=== PATIENT | female | born 1970 | race African-American/Black ===

== ENCOUNTER 2020-05-11 06:44 | Day surgery (SDC) | payer MEDICARE ==
[~2020-05-11] VITALS: Ht 185.4 cm; Wt 65.8 kg
[~2020-05-11 06:44] MED LIST: CLONIDINE HCL0.1 MG PO; FOLIC ACID1 MG PO; K-DUR20 MEQ PO; MEGACE400 MG/10 PO; PROTONIX40 MG PO; RENA-VITE TABL0.8 MG PO; TOPROL XL50 MG PO; ZOFRAN4 MG PO
[2020-05-11 07:57] LABS: BASOPHILS 0.1 % (0-2); EOSINOPHILS 0.6 % (0-7); HEMATOCRIT 20.5 % (36.0-48.0); IMMATURE GRANULOCYTES 0.1 % (0-5); LYMPHOCYTE ABS# 2.88 10x3/uL (1.18-3.74); LYMPHOCYTES 41.4 % (15-50); MCH 29.8 pg (26.0-34.0); MCHC 33.2 g/dL (31.0-37.0); MCV 89.9 fL (80.0-100.0); MEAN PLATELET VOLUME 9.4 fL (7.4-10.4); NEUTROPHIL ABS# 3.74 10x3/uL (1.56-6.13); NEUTROPHILS 53.8 % (40-80); PLATELET COUNT 107 10x3/uL (130-400); RBC 2.28 10x6/uL (4.00-5.40); RDW 18.6 % (11.5-14.5)
[2020-05-11 08:04] LABS: HEMOGLOBIN 6.8 g/dL (12-16)
[2020-05-11 08:14] LABS: ANION GAP 9.3 mmol/L (8-16); CALCIUM 8.1 mg/dL (8.5-10.1); CARBON DIOXIDE 28.9 mmol/L (21.0-32.0); CREATININE - SERUM 5.4 mg/dL (0.6-1.3)
[2020-05-11 08:27] VITALS: BP 144/107; Ht 185.4 cm; Wt 65.8 kg
[2020-05-11 08:45] LABS: POTASSIUM - SERUM 2.2 mmol/L (3.5-5.1)
--- NOTE | 2020-05-11 09:18 | NUR ---
0850 DR CRUZ NOTIFIED OF CRITICAL LAB VALUES: K+ 2.2 AND HGB 6.8 ORDERS RECEIVED. 0905 HEMASPLIT ACCESSED BY BRUNILDA TOVAR RN AND BLOOD DRAWN FOR TYPE AND CROSSMATCH FOR 2 UNITS OF BLOOD. PT BANDED AND BLOOD SENT TO LAB. 0915 KCL RIDER INFUSING VIA HEMASPLIT. UNABLE TO FIND A PERIPHERAL VEIN TO INFUSE PRBC'S WHEN AVAILABLE. DEFERRED IV START TO ANESTHESIA
--- NOTE | 2020-05-11 14:50 | NUR ---
1444 RECEIVED CRITICAL K+ LEVEL FROM SATHYA IN THE LAB. 1445 DR DREW IN UNIT AND NOTIFIED OF k+ LEVEL. DR DREW STATED TO CONTINUE WITH KCL RIDERS.
--- NOTE | 2020-05-11 14:54 | NUR ---
DR DREW AT BEDSIDE. K=2.4. 2ND UNIT OF PRBC TRANSFUSING. THIRED POTASSIUM RIDER HUNG AFTER ACCESSING HEMOSPILT LUMEN PER PROTOCOL. PT TOLERATING WELL
--- NOTE | 2020-05-11 16:09 | NUR ---
10 MEQ POTASSIUM RIDER INFUSING UPON ARRIVAL - RATE 100 ML/HR
--- NOTE | 2020-05-11 16:14 | NUR ---
PRBCS, NS, AND KCL RIDER ALL INFUSING VIA HEMOSPLIT URON ARRIVAL TO PACU.
--- NOTE | 2020-05-11 18:10 | NUR ---
VSS. BLOOD AND POTASSIUM INFUSIONS COMPLETE. PT DENIES PAIN. HEMOSPLIT PORTS FLUSHED AND HEPARINIZED. ABD SOFT NONTENDER. DISCHARGE INSTRUCTIONS GIVEN AND PT VERBALIZED AN UNDERSTANDING
--- NOTE | 2020-05-14 14:29 | OP ---
PATIENT NAME: ANGELICA VOGEL MEDICAL RECORD: [id number] :74 LOCATION:D[facility] ADMISSION DATE: SURGEON: ANDREW CRUZ MD DATE OF OPERATION: 05/11/2020 PRINCIPAL DIAGNOSIS: End-stage renal disease, on peritoneal dialysis, with a desire to switch to hemodialysis. POSTOPERATIVE DIAGNOSIS: End-stage renal disease, on peritoneal dialysis, with a desire to switch to hemodialysis. PROCEDURE: Removal of cuffed tunneled peritoneal dialysis catheter. SURGEON: Andrew Cruz MD. PATIENT SERVICES SPECIALIST: None. BLOOD LOSS: Minimal. ANESTHESIA: General. COMPLICATIONS: None. The patient's operation was delayed to some degree as she was anemic requiring a blood transfusion and hypokalemic. The risks, possible complications, and alternatives of the procedure were explained to the patient. She elects to proceed. DESCRIPTION OF PROCEDURE: The patient was conveyed to the operating room electively on 05/11/2020. General anesthesia was induced by the anesthesia staff. The abdomen was sterilely prepped and draped. The peritoneal dialysis catheter actually had one of the cuffs outside of the skin. It was about 4 inches from the skin and the other cuff was buried. A circular incision was accomplished around the catheter exit site. I dissected down along the fibrous sheath around the catheter. I incised the fibrous sheath at the level of the abdominal wall. The peritoneal dialysis catheter with both cuffs was removed in its entirety. The hole that was present through the abdominal wall into the peritoneal cavity was closed with a [id number] 0 Vicryl suture. Deep adipose tissue was closed with an interrupted 3-0 Vicryl. Subcutaneous adipose tissue was closed with interrupted 3-0 Vicryl. Skin was closed with 2 horizontal mattress 3-0 Vicryl Rapide sutures and then a sterile dressing was applied. There is no need for the patient to follow up with me in the office unless she develops complications related to this operative procedure. The Rapide sutures should fall out within 21 days. TRANSINT:[id number] Voice Confirmation ID: [id number] DOCUMENT ID: [id number] OPERATIVE REPORT [id number] ANGELICA VOGEL ANDREW CRUZ MD at 1429 CC: ROHAN SAWYER [id number] DICTATION DATE: 05/11/20 1711 LAPPING MACHINE TENDER: 05/11/20 9085 [facility] 05/11/20 [facility] [address] [id number]
== END 2020-05-11 17:55 | disposition home or self-care (01) ==
LOC: D.OPS 06:44
PROVIDERS: ATTEND Surgery
DX: N18.6 End stage renal disease (principal); Z99.2 Dependence on renal dialysis; F17.200 Nicotine dependence, unspecified, uncomplicated; K21.9 Gastro-esophageal reflux disease without esophagitis; I10 Essential (primary) hypertension; E87.6 Hypokalemia